=== PATIENT | male | born 1985 | race American Indian/Alaskan Native ===

== ENCOUNTER 2018-12-14 15:45 | Emergency (ER) | payer SELFPAY ==
[2018-12-14 16:19] LABS: BASO % 0.3 % (0.0-2.0); EOS # 0.4 K/uL (0.0-0.7); EOS % 5.4 % (0.0-4.0); HEMOGLOBIN 14.6 g/dL (12.0-18.0); LYMPH # 2.8 K/uL (1.0-4.3); LYMPH % 39.4 % (20.0-40.0); MEAN CELL VOLUME 88.5 fL (80.0-94.0); MEAN CORPUSCULAR HEMOGLOBIN 29.6 pg (27.0-31.0); MEAN CORPUSCULAR HGB CONC 33.4 g/dL (33.0-37.0); MEAN PLATELET VOLUME 7.9 fL (7.2-11.7); MONO # 0.5 K/uL (0.0-0.8); NEUT # 3.4 K/uL (1.8-7.0); NEUT % 47.9 % (50.0-75.0); RBC 4.92 Mil/uL (4.40-5.90)
[2018-12-14 16:31] LABS: ALB/GLOB RATIO 1.4 (1.0-2.1); ALBUMIN 4.4 g/dL (3.5-5.0); ALT/SGPT 16 U/L (21-72); AST/SGOT 29 U/L (17-59); BLOOD UREA NITROGEN 12 mg/dL (9-20); CALCIUM 9.4 mg/dl (8.6-10.4); GFR NON-AFRICAN AMERICAN > 60
--- NOTE | 2018-12-14 18:01 | C.PDOC ---
History Of Present Illness 50 y/o male brought to ED by ems with police officers for substance abuse after being found in street. per ems, pt well known to them for substance abuse. pt is yelling and screaming and being uncooperative. <Albania Carrasquillo - Last Filed: 12/14/18 19:00> <Albania Carrasquillo - Last Filed: 12/14/18 19:00> <Vasquez Orozco - Last Filed: 12/14/18 23:14> Time Seen by Provider: 12/14/18 15:53 Chief Complaint (Nursing): Substance Abuse Past Medical History Reviewed: Historical Data, Nursing Documentation, Vital Signs - Medical History PMH: No Chronic Diseases Family History: States: Unknown Family Hx - Social History Hx Alcohol Use: (Unknown) Hx Substance Use: Yes (PCP use found in site) <Albania Carrasquillo - Last Filed: 12/14/18 19:00> Vital Signs: Last Vital Signs Temp 98.7 F 12/14/18 18:00 Pulse 80 12/14/18 20:03 Resp 16 12/14/18 20:03 BP 93/56 L 12/14/18 20:03 Pulse Ox 99 12/14/18 20:03 <Vasquez Orozco - Last Filed: 12/14/18 23:14> Review Of Systems Review Of Systems: ROS cannot be obtained secondary to pt's inabilty to answer questions. <Albania Carrasquillo - Last Filed: 12/14/18 19:00> Physical Exam - Physical Exam Appears: Non-toxic, Unkempt, Agitated, Other Skin: Normal Color, Warm, Dry Head: Atraumatic, Normacephalic Eye(s): bilateral: Normal Inspection, PERRL, EOMI Nose: Normal Oral Mucosa: Moist Neck: Normal, Supple Chest: Symmetrical, No Tenderness Cardiovascular: Rhythm Regular, No Murmur Respiratory: Normal Breath Sounds, No Rales, No Rhonchi, No Wheezing Gastrointestinal/Abdominal: Soft, No Tenderness, No Guarding, No Rebound Extremity: Normal ROM Neurological/Psych: Normal Speech, Normal Cognition, Other (alert) <Albania Carrasquillo - Last Filed: 12/14/18 19:00> ED Course And Treatment - Laboratory Results Result Diagrams: 12/14/18 16:19 12/14/18 16:16 Lab Results: Total Bilirubin 0.8 mg/dL (0.2-1.3) 12/14/18 16:16 AST 29 U/L (17-59) 12/14/18 16:16 ALT 16 U/L (21-72) L 12/14/18 16:16 Alkaline Phosphatase 78 U/L (38-126) 12/14/18 16:16 Total Protein 7.5 g/dL (6.3-8.3) 12/14/18 16:16 Albumin 4.4 g/dL (3.5-5.0) 12/14/18 16:16 Globulin 3.1 gm/dL (2.2-3.9) 12/14/18 16:16 Albumin/Globulin Ratio 1.4 (1.0-2.1) 12/14/18 16:16 <Albania Carrasquillo - Last Filed: 12/14/18 19:00> - Laboratory Results Result Diagrams: 12/14/18 16:19 12/14/18 16:16 Lab Results: Total Bilirubin 0.8 mg/dL (0.2-1.3) 12/14/18 16:16 AST 29 U/L (17-59) 12/14/18 16:16 ALT 16 U/L (21-72) L 12/14/18 16:16 Alkaline Phosphatase 78 U/L (38-126) 12/14/18 16:16 Total Protein 7.5 g/dL (6.3-8.3) 12/14/18 16:16 Albumin 4.4 g/dL (3.5-5.0) 12/14/18 16:16 Globulin 3.1 gm/dL (2.2-3.9) 12/14/18 16:16 Albumin/Globulin Ratio 1.4 (1.0-2.1) 12/14/18 16:16 Urine Color Yellow (YELLOW) 12/14/18 18:45 Urine Clarity Clear (Clear) 12/14/18 18:45 Urine pH 6.0 (5.0-8.0) 12/14/18 18:45 Ur Specific [place] 1.020 (1.003-1.030) 12/14/18 18:45 Urine Protein Negative mg/dL (NEGATIVE) 12/14/18 18:45 Urine Glucose (UA) Normal mg/dL (Normal) 12/14/18 18:45 Urine Ketones Negative mg/dL (NEGATIVE) 12/14/18 18:45 Urine Blood Negative (NEGATIVE) 12/14/18 18:45 Urine Nitrate Negative (NEGATIVE) 12/14/18 18:45 Urine Bilirubin Negative (NEGATIVE) 12/14/18 18:45 Urine Urobilinogen 2.0 mg/dL (0.2-1.0) 12/14/18 18:45 Ur Leukocyte Esterase Neg Moncho/uL (Negative) 12/14/18 18:45 Urine WBC (Auto) 3 /hpf (0-5) 12/14/18 18:45 Urine RBC (Auto) 6 /hpf (0-3) H 12/14/18 18:45 Ur Squamous Epith Cells 13 /hpf (0-5) H 12/14/18 18:45 Hyaline Casts 6-10 /lpf (0-2) H 12/14/18 18:45 <Vasquez Orozco - Last Filed: 12/14/18 23:14> Medical Decision Making Medical Decision Making: Patient came in agitated, was calmed down with verbal communication, became agitated shortly after and was medicated. 1855 pt resting comfortably. still have not received urine from patient so no urine drug screen done yet. vitals remain stable. will endore to oncoming team to f/u and dispo <Albania Carrasquillo - Last Filed: 12/14/18 19:00> Medical Decision Making: signed over @ 1900 BIBA smoking PCP 4 pt restraints and Ativan 2 IM multiple revisions, steadily improving now clinically sober and wants d/c to home tox + PCP <Vasquez Orozco - Last Filed: 12/14/18 23:14> Disposition - Disposition Disposition Time: 19:00 <Albania Carrasquillo - Last Filed: 12/14/18 19:00> Doctor Will See Patient In The: Office Counseled Patient/Family Regarding: Studies Performed, Diagnosis <Vasquez Orozco Last Filed: 12/14/18 23:14> - Disposition Disposition: HOME/ ROUTINE Condition: GOOD Forms: [employer] (Korean) - Clinical Impression Clinical Impression: Drug abuse - PA / [employer] BENCH / Resident Statement MD/DO has reviewed & agrees with the documentation as recorded. - Scribe Statement The provider has reviewed the documentation as recorded by the Scribe (Baljinder cross) All medical record entries made by the Scribe were at my direction and personally dictated by me. I have reviewed the chart and agree that the record accurately reflects my personal performance of the history, physical exam, medical decision making, and the department course for this patient. I have also personally directed, reviewed, and agree with the discharge instructions and di sposition. <Albania Carrasquillo - Last Filed: 12/14/18 19:00> Physician Patient Turnover Patient Signed Over To: Vasquez Orozco Handoff Comments: f/u urine drug screen, re-eval pt when sobriety. possible psych consult needed. <Albania Carrasquillo - Last Filed: 12/14/18 19:00>
[2018-12-14 18:57] LABS: SQUAMOUS EPITHIAL 13 /hpf (0-5); URINE BILIRUBIN NEGATIVE (NEGATIVE); URINE BLOOD NEGATIVE (NEGATIVE); URINE CLARITY Clear (Clear); URINE COLOR Yellow (YELLOW); URINE GLUCOSE (UA) NORMAL (Normal); URINE LEUKOCYTE ESTERASE NEG Leu/uL (Negative); URINE PROTEIN NEGATIVE (NEGATIVE)
[2018-12-14 19:09] LABS: BARBITURATES, UR NEGATIVE (NEGATIVE); BENZODIAZEPINES, UR NEGATIVE (NEGATIVE); OPIATES, UR NEGATIVE (NEGATIVE)
[2018-12-14 19:10] LABS: PHENCYCLIDINE, UR POSITIVE (NEGATIVE)
[2018-12-14 20:04] VITALS: PULSE 80; O2SAT 99
[2018-12-14] MEDS ORDERED: Albuterol-Ipratrop 3 mg / 0.5 (3 ml) UD ONE (22:13)
[2018-12-14 23:32] VITALS: BP 118/62; RESP 20; TEMP 98.1
== END 2018-12-15 00:20 | disposition home or self-care (01) ==
LOC: EDBD 15:45 → C.ER 15:45
DX: F19.10 Other psychoactive substance abuse, uncomplicated (principal)
CPT/HCPCS: 80053; 81001; 83735; 84100; 85025; 96372; 99285; G0480; J2060